=== PATIENT | female | born 1995 | race Caucasian/White ===

== ENCOUNTER 2019-03-27 11:23 | Outpatient (CLI) | payer OTHER ==
--- NOTE | 2019-03-27 12:18 | RAD ---
LEFT ELBOW 4 VIEWS: Date: 03/27/19 HISTORY: Elbow pain. COMPARISON: None. FINDINGS: There is no significant joint effusion. No acute fracture or malalignment. IMPRESSION: No acute osseous abnormality. POS: ITZ
== END 2019-03-27 11:24 | disposition home or self-care (01) ==
LOC: BICRAD 11:23
PROVIDERS: ATTEND Family Medicine
DX: M25.522 Pain in left elbow (principal)
CPT/HCPCS: 36415; 80053; 80061; 83036; 84439; 84443; 85025